=== PATIENT | female | born 1990 | race Caucasian/White ===

== ENCOUNTER 2025-02-14 04:18 | Emergency (ER) | payer OTHER, SELFPAY ==
[2025-02-14 04:19] VITALS: BP 156/101
[2025-02-14] MEDS: NSS 1000 IV (04:30)
[2025-02-14 04:45] VITALS: BMI 37.1
--- NOTE | 2025-02-14 04:51 | ED.GENMED ---
History of Present Illness
General
Chief Complaint: Problems
Source: patient
Exam Limitations: none
Time Seen by Provider: 02/14/25 04:39
Nursing documentation reviewed up to this point in time: agreed with
History of Present Illness
History of Present Illness:
34 y/o female presents to the emergency department with concerns of vaginal bleeding in her first trimester of .
She lives in [place] and is here visiting family until February 27.
She did have confirmed via blood work and ultrasound in [place].
She reports that she landed from [place] yesterday.
Her OBGYN is in [place]. This was conceived naturally without IVF. With her history of multiple miscarriages, her OBGYN started her on intravaginal progesterone suppositories to help support the .
She called nursing staff in [place] who believes the blood and discharge could be irritation from vaginal suppository..
She noticed brown discharged yesterday. She wiped this morning and noticed bright red blood and immediately presenting to the ER.
Patient does state that she has long nails and was scratching her vulva yesterday.
No pelvic cramping or abdominal pain.
No fevers or chills.
She is A positive.
Review of Systems
Review of Systems
All Other Systems: ROS reviewed and negative except as documented in HPI and ROS
Phy Exam
Physical Exam
Physical Exam:
General: Patient is well appearing and in no acute distress; non-toxic
Skin: Warm and dry, no rashes or lesions
Head: Normocephalic, atraumatic
Eyes: Sclera non-icteric. EOMs intact.
Cardiac: Regular rate and rhythm, no murmurs
Peripheral Vascular: No lower extremity swelling or edema.
Pulm: Normal respiratory effort, no wheezes, rales, or rhonchi
Abdomen: No abdominal tenderness to palpation.
Genitourinary: No external vulvar lesions. Vaginal mucosa pink and moist, no blood within vaginal vault, no evidence of vaginal laceration. Cervical os closed.
Neuro: CN II-XII intact, no focal neurologic deficits.
Psychiatric: Appropriate mood and affect.
Course
Orders/Labs/Results
Orders:
Orders
02/14/25 04:41
US W Transvaginal Urgent
Reason For Exam: vaginal bleeding
02/14/25 04:59
Type+Screen Urgent
Beta HCG Quantitative Urgent
Is this a screen?: No
Complete Blood Count/With Diff Urgent
Comprehensive Metabolic Panel Urgent
02/14/25 05:12
0.9% Sodium Chloride 1000 ml [Nss] 1,000 ml IV BOLUS
02/14/25 06:22
Urinalysis Reflex To Culture Urgent
Date Specimen was Collected: 02/14/25
Time Specimen was Collected: 05:25
Urine Microscopic Reflex Cult Urgent
Urine Culture Urgent
ADRIA Source: U
Specimen Description:
Date Specimen was Collected: 02/14/25
Time Specimen was Collected: 05:25
02/14/25 06:48
ABO2 Urgent
[email or web address]K Wristband Number:
Associate notified that ABO2 has been ordered: [id number]
Date: 02/14/25
Time: 06:24
Recruiting Coordinator ID: [id number]
Abnormal Lab Results
02/14/25 02/14/25
04:59 06:22
Chloride 109 H mmol/L
(98-107)
Glucose 108 H mg/dl
(70-99)
AST 47 H U/L
(14-36)
ALT 104 H U/L
(0-35)
Ur Occult Blood Reflex 4+ A
(Negative)
Leukocyte Esterase Rfl 3+ A
(Negative)
Urine RBC 3-6 A /HPF
(0-2)
Urine WBC (Reflex) 30-40 A /HPF
(0-5)
Urine Bacteria (Reflex) Moderate A
(Negative)
02/14/25 04:59
02/14/25 04:59
Vital Signs
Initial and Last Documented VS:
Initial Vital Signs
Temp Pulse Resp BP Pulse Ox
98 F 95 18 156/101 99
02/14/25 04:19 02/14/25 04:19 02/14/25 04:19 02/14/25 04:19 02/14/25 04:19
Last Documented Vital Signs
Temp Pulse Resp BP Pulse Ox
98 F 72 16 125/86 99
02/14/25 04:19 02/14/25 06:04 02/14/25 06:04 02/14/25 06:04 02/14/25 04:19
Information
Weeks gestation: Weeks: (6 weeks)
Location: Location: (intrauterine)
MDM/Problems Addressed
Differential Diagnosis Includes:
ddx include spontaneous miscarriage, threatened , implantation bleeding, vaginitis
MDM/Problems Addressed:
34 y/o female presents to the emergency department with concerns of vaginal bleeding in her first trimester of .
PE unremarkable. US shows intact IUP. Urinalysis shows some bacteria however no clear evidence of acute infection, no pelvic pain no urinary symptoms, reviewed urinalysis with attending, will await culture and will not treat.
Beta hcg around 1300.
Patient has no obyn care until February 27 when she flies back to [place].
Advised patient to return to the emergency department in 48 hours to repeat beta to ensure doubling.
Patient stable for discharge.
*Pulse Oximetry
Patient hypoxic: no
*Critical Care Note
Total Time (30-74mins, 75-104mins- exclusive of procedures): Not Applicable
Data Reviewed
Review of Other/Old Records Reveals: Records (no prior records for review)
ED Attending Note
-
Portions of this chart may have been created with voice recognition software.� Occasional wrong word or��sound alike� substitutions may have occurred due to the inherent limitations of voice recognition software.
Discharge Plan
Departure
Patient Disposition: Home (Routine Discharge)
Date of Disposition: 02/14/25
Time of Disposition: 07:21
Patient with high blood pressure during this ER visit?: Yes
Condition: Good
Discharge Problem:
First trimester bleeding
Instructions: Bleeding in early , BLOOD PRESSURE
Prescriptions:
No Action
metformin 850 mg Tablet
850 mg PO BID
1 mg Tablet
1 tab PO DAILY
aspirin 81 mg Tablet
75 mg PO DAILY
Fragmin 7,500 anti-Xa unit/0.3 mL Syringe
7,500 unit SC DAILY
progesterone micronized 100 mg Insert
400 mg VAGINAL BID
Referrals:
UNKNOWN - PT DOES,NOT KNOW [Family Provider] -
Activity Restrictions/Additional Instructions:
Please report to emergency department to have your beta-hCG levels repeated in 48 hours.
PLEASE RETURN WITH DEPARTMENT SHOULD YOU DEVELOP PASSAGE OF CLOTS, DIZZINESS, LIGHTHEADEDNESS, ANY ACUTE WORSENING OF YOUR BLEEDING, CHEST PAIN, SHORTNESS OF BREATH, ABDOMINAL PAIN, OR ANY OTHER SIGNS OR SYMPTOMS WORRISOME TO YOU.
Interventions
Interventions:
*Risk Screen - Suicide Last Done: 02/14/25 04:19
*General Assessment Last Done: 02/14/25 04:19
*Neglect/Abuse Screening Last Done: 02/14/25 04:19
*ED- Fall Risk Assessment Last Done: 02/14/25 04:30
*ED COVID-19 Vaccine History Last Done: 02/14/25 04:19
*Nursing Disposition Last Done: 02/14/25 07:56
ED-Female Genitourinary Assessment Last Done: 02/14/25 04:30
Discharge Date and Time
Discharge Date/Time: 02/14/25 07:56
Print Language: IRAQI
[2025-02-14 05:22] LABS: % Basophils 0.4 % (0-2); % Eosinophils 3.4 % (0-6); % Immature Granulocytes 0.3 % (0-0.5); % Lymphocytes 35.6 % (20.5-51.1); % Monocytes 9.3 % (1.7-9.3); Absolute Eosinophils 0.2 10^3/uL (0-0.7); Absolute Lymphocytes 2.4 10^3/uL (1.2-3.4); Absolute Monocytes 0.6 10^3/uL (0.1-0.6); Absolute Neutrophils 3.4 10^3/uL (1.4-6.5); Hematocrit 41.3 % (37.0-47.0); Hemoglobin 13.9 g/dL (12.0-16.0); Mean Corp Hgb Conc. 33.7 g/dL (33.0-37.0); Mean Corpuscular Hgb 29.1 pg (27.0-31.0); Mean Corpuscular Volume 86.6 fL (81.0-99.0); Mean Platelet Volume 9.7 fL (7.4-10.4); Nucleated Red Blood Cells % 0.4 %; Platelet Count 330 10^3/uL (130-400); Red Blood Cell Count 4.77 10^6/uL (4.20-5.40); Red Cell Dist. Width 13.3 % (11.5-14.5); White Blood Cell Count 6.7 10^3/uL (4.8-10.8)
[2025-02-14 05:34] LABS: ALT (SGPT) 104 U/L (0-35); AST (SGOT) 47 U/L (14-36); Albumin 4.6 g/dl (3.5-5.0); Alkaline Phosphatase 65 U/L (38-126); Blood Urea Nitrogen 7 mg/dl (7-17); Calcium 9.8 mg/dl (8.4-10.2); Carbon Dioxide 23 mmol/L (22-30); Chloride 109 mmol/L (98-107); Estimated Creatinine Clearance > 125 ml/min; Glucose 108 mg/dl (70-99); Potassium 4.1 mmol/L (3.5-5.1); Sodium 141 mmol/L (135-145); Total Bilirubin 0.7 mg/dl (0.2-1.3); Total Protein 7.3 g/dl (6.3-8.2); eGFR > 60.00
[2025-02-14 06:04] VITALS: BP 125/86
[2025-02-14 06:37] LABS: Urine Albumin Negative (Neg - Trace); Urine Bilirubin Negative (Negative); Urine Character Clear (Clear); Urine Glucose Negative (Negative); Urine Ketone Negative (Negative); Urine Leukocyte 3+ (Negative); Urine Nitrite Negative (Negative); Urine Occult Blood 4+ (Negative); Urine Specific Gravity 1.015 (<1.030); Urine Urobilinogen Negative (Neg - 1+)
[2025-02-14 06:47] LABS: Urine Color Straw
[2025-02-14 06:49] LABS: Urine Squamous Cell 16-20 /LPF (Few)
[2025-02-14 06:50] LABS: Urine Bacteria Moderate (Negative); Urine White Cell 30-40 /HPF (0-5)
== END 2025-02-14 07:56 | disposition home or self-care (01) ==
LOC: EMR 04:18
PROVIDERS: Physician Assistant; EMERGENCY PHYSICIAN Student in an Organized Health Care Education/Training Program
DX: O20.9 Hemorrhage in early pregnancy, unspecified (principal); O09.521 Supervision of elderly multigravida, first trimester; Z3A.08 8 weeks gestation of pregnancy
CPT/HCPCS: 96360; 99284; 76801; 76817; 80053; 81003; 81015; 84702; 85025; 86850; 86900; 86901; 87086

== ENCOUNTER 2025-02-16 06:08 | Emergency (ER) | payer OTHER, SELFPAY ==
[2025-02-16 06:12] VITALS: BP 121/84
--- NOTE | 2025-02-16 06:35 | ED.GENMED ---
History of Present Illness
General
Chief Complaint: Problems
Time Seen by Provider: 02/16/25 06:24
History of Present Illness
History of Present Illness:
34-year-old female returns emergency department for repeat hCG testing. Was seen in this ED 2 days ago due to first trimester vaginal bleeding, found to have a live IUP by ultrasound however hCG levels were not as elevated as anticipated. She
resides in [place] and will not be returning until early next month thus was told to come back to the ED for repeat hCG levels. She reports the bleeding is stopped in the ED 2 days ago but today it seemed to restart. She reports small amount of
spotting present only when wiping, blood is not entering her underwear pad. Multiple prior miscarriages in the past
Review of Systems
Review of Systems
Allergies reviewed?: Yes
All Other Systems: ROS reviewed and negative except as documented in HPI and ROS
Phy Exam
Physical Exam
Physical Exam:
GEN: Well appearing, NAD, WDWN
HEENT: Oral mucosa moist, no scleral icterus
Cardiac: Regular rate
Lung: No respiratory distress, no tachypnea
MSK: No gross deformity or injuries
Skin: Good color, no pallor or jaundice, no rashes
Neuro: AO x3, moves all extremities freely
Psych: Calm, cooperative
Course
Orders/Labs/Results
Orders:
Orders
02/16/25 06:53
Beta HCG Quantitative Urgent
Is this a screen?: No
Complete Blood Count/No Diff Urgent
02/16/25 06:53
Vital Signs
Initial and Last Documented VS:
Initial Vital Signs
Temp Pulse Resp BP Pulse Ox
99.0 F 93 18 121/84 100
02/16/25 06:12 02/16/25 06:12 02/16/25 06:12 02/16/25 06:12 02/16/25 06:12
Last Documented Vital Signs
Temp Pulse Resp BP Pulse Ox
99.0 F 93 18 121/71 99
02/16/25 06:12 02/16/25 06:12 02/16/25 06:12 02/16/25 07:00 02/16/25 07:00
Information
Weeks gestation: N/A
Location: N/A
MDM/Problems Addressed
MDM/Problems Addressed:
Patient's hCG is not increasing as anticipated in early . Likely indicative of demise. No indication for repeat ultrasound given that she has no pain and only mild amount of bleeding. Communicated findings and clinical presentation
with PLASMA TABLE OPERATOR for outpatient follow-up purposes. Lab orders will be written for repeat hCG early next week, ED return parameters discussed. Recommend she continue her fragmin and progesterone for the time being
*Critical Care Note
Total Time (30-74mins, 75-104mins- exclusive of procedures): Not Applicable
ED Attending Note
-
Portions of this chart may have been created with voice recognition software.� Occasional wrong word or��sound alike� substitutions may have occurred due to the inherent limitations of voice recognition software.
Discharge Plan
Departure
Patient Disposition: Home (Routine Discharge)
Date of Disposition: 02/16/25
Time of Disposition: 08:27
Patient with high blood pressure during this ER visit?: No
Discharge Problem:
, threatened
Instructions: Threatened Miscarriage (DC)
Prescriptions:
No Action
metformin 850 mg Tablet
850 mg PO BID
1 mg Tablet
1 tab PO DAILY
aspirin 81 mg Tablet
75 mg PO DAILY
Fragmin 7,500 anti-Xa unit/0.3 mL Syringe
7,500 unit SC DAILY
progesterone micronized 100 mg Insert
400 mg VAGINAL BID
Referrals:
Melony Rodriguez, DO [Active] - Call in 1-3 days for appt
Activity Restrictions/Additional Instructions:
Continue your Fragmin and progesterone for the time being. If your bleeding increases return to the ER for further evaluation
Follow-up with the listed PLASMA TABLE OPERATOR next week for reevaluation.
Obtain your repeat hCG levels on Wednesday before follow-up
Interventions
Interventions:
*Risk Screen - Suicide Last Done: 02/16/25 06:12
*General Assessment Last Done: 02/16/25 08:39
*Neglect/Abuse Screening Last Done: 02/16/25 08:39
*ED- Fall Risk Assessment Last Done: 02/16/25 08:39
*ED COVID-19 Vaccine History Last Done: 02/16/25 08:39
*Nursing Disposition Last Done: 02/16/25 08:39
ED-Female Genitourinary Assessment Last Done: 02/16/25 08:39
Discharge Date and Time
Discharge Date/Time: 02/16/25 08:42
Print Language: AFGHAN
[2025-02-16 06:58] VITALS: BP 134/77; BMI 36.5
[2025-02-16 07:00] VITALS: BP 121/71
[2025-02-16 07:12] LABS: Hematocrit 40.6 % (37.0-47.0); Hemoglobin 13.8 g/dL (12.0-16.0); Mean Corpuscular Hgb 29.4 pg (27.0-31.0); Mean Corpuscular Volume 86.4 fL (81.0-99.0); Mean Platelet Volume 9.5 fL (7.4-10.4); Platelet Count 341 10^3/uL (130-400); Red Cell Dist. Width 13.2 % (11.5-14.5); White Blood Cell Count 6.9 10^3/uL (4.8-10.8)
== END 2025-02-16 08:42 | disposition home or self-care (01) ==
LOC: EMR 06:08
PROVIDERS: Physician Assistant; EMERGENCY PHYSICIAN Emergency Medicine
DX: O20.0 Threatened abortion (principal); Z3A.00 Weeks of gestation of pregnancy not specified
CPT/HCPCS: 99283; 84702; 85027